=== PATIENT | male | born 1965 | race Caucasian/White ===

== ENCOUNTER 2016-05-26 23:50 | Observation (INO) | payer BC ==
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
[2016-05-27 00:30] LABS: BASOPHILS 0.1 %; BASOPHILS ABSOLUTE 0.01 10/3/uL (0.0-0.16); EOSINOPHILS 2.4 %; EOSINOPHILS ABSOLUTE 0.26 10/3/uL (0.0-0.53); HEMATOCRIT 40.7 % (40.0-51.0); HEMOGLOBIN 14.2 g/dL (13.6-17.8); IMMATURE GRANULOCYTES 0.4 %; IMMATURE GRANULOCYTES ABSOLUTE 0.04 10/3/uL (0.0-0.11); LYMPHOCYTES 36.6 %; LYMPHOCYTES ABSOLUTE 4.04 10/3/uL (0.67-4.30); MEAN CORPUS HGB CONC 34.9 g/dL (32.0-36.0); MEAN CORPUSCULAR HEMOGLOB 29.8 pg (26.0-34.0); MEAN CORPUSCULAR VOLUME 85.5 fL (80-100); MONOCYTES 6.6 %; MONOCYTES ABSOLUTE 0.73 10/3/uL (0.21-1.20); NEUTROPHILS 53.9 %; NEUTROPHILS ABSOLUTE 5.95 10/3/uL (2.02-8.40); PLATELET COUNT 282 10/3/uL (150-400); RBC DISTRIBUTION WIDTH 12.7 % (12.0-16.0); RED CELL COUNT 4.76 10/6/uL (4.7-6.1)
[2016-05-27 00:31] LABS: MANUAL DIFF NO %
[2016-05-27 00:50] LABS: CHEST PAIN PROFILE TAT 0 Hrs 24 Mins; CHLORIDE, SERUM 100 MMOL/L (96-112); CO2 (CARBON DIOXIDE) 26 MMOL/L (24-34); CREATININE 1.55 MG/DL (0.70-1.30); GFR AFRICAN AMERICAN 59 ML/MIN (>=60); GFR NON AFRICAN AMERICAN 51 ML/MIN (>=60); POTASSIUM, SERUM 4.2 MMOL/L (3.5-5.3); SODIUM, SERUM 136 MMOL/L (135-148); TROPONIN I <0.02 NG/ML (<0.05)
[2016-05-27 00:52] LABS: BUN (BLOOD UREA NITROGEN) 24 MG/DL (6-23); CALCIUM, SERUM 9.1 MG/DL (8.5-10.4); GLUCOSE, SERUM 206 MG/DL (60-99)
[2016-05-27] MEDS ORDERED: PRINZIDE1 TAB PO (01:38)
[2016-05-27] MEDS ORDERED: SILVADENE CREAM 1% TOP (01:40)
[2016-05-27] MEDS ORDERED: FISH OIL OTC PO (01:41)
[2016-05-27 07:28] LABS: TROPONIN I <0.02 NG/ML (<0.05)
[2016-05-27 13:36] LABS: CHOL/HDL RATIO(NOT ORDER) 12.7 (0-5); CHOLESTEROL 292 MG/DL (< 200); HDL CHOLESTEROL 23 MG/DL (> 39); NON-HDL CHOLESTEROL 269 MG/DL (< 160); TRIGLYCERIDE 984 MG/DL (< 150)
[2016-05-27 14:09] LABS: BUN (BLOOD UREA NITROGEN) 19 MG/DL (6-23); CALCIUM, SERUM 8.9 MG/DL (8.5-10.4); CHLORIDE, SERUM 102 MMOL/L (96-112); CO2 (CARBON DIOXIDE) 24 MMOL/L (24-34); CREATININE 1.22 MG/DL (0.70-1.30); GFR AFRICAN AMERICAN 79 ML/MIN (>=60); GFR NON AFRICAN AMERICAN 68 ML/MIN (>=60); GLUCOSE, SERUM 146 MG/DL (60-99); POTASSIUM, SERUM 4.7 MMOL/L (3.5-5.3); SODIUM, SERUM 136 MMOL/L (135-148)
[2016-05-27] MEDS ORDERED: LIPITOR40 PO (15:43)
== END 2016-05-27 16:04 | disposition home or self-care (01) ==
LOC: ER 23:50 → CDU1 23:59 → CDU2 05-27 01:46
PROVIDERS: Clinical Nurse Specialist; Emergency Medicine
DX: R07.2 Precordial pain (principal); I10 Essential (primary) hypertension; Z98.890 Other specified postprocedural states; Z79.899 Other long term (current) drug therapy
CPT/HCPCS: 71010; 78452; 80048; 80061; 82962; 83036; 83735; 84484; 85025; 85610; 85730; 93005; 93017; 99285; A9270-GY; A9502; G0378